=== PATIENT | female | born 1995 | race African-American/Black ===

== ENCOUNTER → 2024-02-26 | Outpatient (CLI) | payer BC, SELFPAY ==
[2024-03-04 10:09] LABS: Clam <0.10 kU/L (Class 0); Codfish <0.10 kU/L (Class 0); Corn <0.10 kU/L (Class 0); Egg, White <0.10 kU/L (Class 0); Milk (Cow) <0.10 kU/L (Class 0); Peanut <0.10 kU/L (Class 0); SCALLOP <0.10 kU/L (Class 0); SESAME SEED <0.10 kU/L (Class 0); Shrimp <0.10 kU/L (Class 0); Soybean <0.10 kU/L (Class 0); Walnut, (Food) <0.10 kU/L (Class 0); Wheat <0.10 kU/L (Class 0)
== END | disposition home or self-care (01) ==
PROVIDERS: Referring Provider Otolaryngology; Visit Provider Otolaryngology
DX: T78.40XA Allergy, unspecified, initial encounter (principal)
CPT/HCPCS: 36415; 86003

== ENCOUNTER 2024-11-15 20:18 | Emergency (ER) | payer OTHER, SELFPAY ==
[2024-11-15 20:19] VITALS: BP 123/77; PULSE 100; RESP 18; TEMP 36.9; O2SAT 98; BMI 59.7
--- NOTE | 2024-11-15 20:37 | EDS_ITS ---
HPI History of Present Illness Chief Complaint: Chest Pain Narrative Narrative: Patient presenting today due to left upper quadrant abdominal pain that radiates to her epigastrium that she has had off-and-on for over a month. She reports that it has been worse over the past few weeks, especially today, prompting her to come in for evaluation. She reports that she ate chicken tenders and [place] fries from [employer] today and that worsened her pain. She notices that her pain is worse after eating greasy and spicy foods. She does have a history of a cholecystectomy. She denies fevers, chills, chest pain, vomiting, and urinary symptoms. She reports that she has been somewhat constipated. PFSH PFSH Medical History no medical history Allergy/AdvReac Type Severity Reaction Status Date / Time Seasonal Allergies: Uncoded Allergy Mild SNEEZING Verified 11/15/24 20:23 Surgical History (Updated 11/15/24 @ 20:36 by Selma Ruggiero) H/O section History of cholecystectomy Social History Smoking Status: Never smoker ROS ROS ED Constitutional Constitutional ED: Denies chills or fever(s) Cardiovascular Cardiovascular: Denies chest pain Respiratory/Chest Respiratory/Chest: Denies dyspnea Gastrointestinal Gastrointestinal: Reports abdominal pain, constipation and nausea; Denies diarrhea, melena or vomiting Genitourinary Genitourinary ED: Denies dysuria, hematuria or urinary urgency Musculoskeletal Musculoskeletal: Denies arthralgias or myalgias Integumentary Denies rash Neurologic Neurologic: Denies weakness EXAM Physical Exam Const Vital Signs: 11/15/24 20:19 Temperature 98.4 F Temperature Source Temporal Pulse Rate 100 Respiratory Rate 18 Blood Pressure 123/77 H Blood Pressure Mean 92 Pulse Ox 98 Oxygen Delivery Method Room Air Positive well nourished, well developed and no apparent distress General Appearance ED: well developed HEENT Reports normocephalic and head/scalp atraumatic Mouth ED: Yes moist mucous membranes normal Eyes PERRL and EOMs intact bilaterally Neck full ROM and supple Chest Wall inspection of chest normal Resp normal respiratory effort and clear to auscultation bilaterally Cardio regular rate and regular rhythm GI soft to palpation, non-distended and no masses GI Narrative: Minimal epigastric and left upper quadrant tenderness to palpation, no rigidity or guarding. Back/Spine normal ROM and normal to inspection Extremity normal to inspection and full ROM Neuro oriented x3, CN's II-XII intact bilaterally, moves all extremities, no focal motor deficits and no sensory deficits noted Sensorium / Orientation: awake and alert Psych mental status grossly normal and thought process normal Skin no rashes or lesions noted and no wounds MDM MDM MDM Narrative Medical decision making narrative: Patient presenting today with left upper quadrant abdominal pain and epigastric pain she has had intermittently for over a month. It has been worse over the past few weeks, especially today after eating chicken fingers and Cuban fries from [employer]. She has no reports chest pain, patient denies chest pain, her symptoms are GI in nature. We will trial a GI cocktail and Pepcid. Lipase will be obtained to assess for pancreatitis given she did have a moderate amount of alcohol this weekend after drinking 3 tall boys. Discharge Plan Triage Chief Complaint: Chest Pain ED Midlevel Provider: Slime Eubanks ED Provider: Emiliano De La Cruz Dx/Rx/DC Orders Primary Care Provider: NOT,DEFINED Referrals: NOT,DEFINED [Primary Care Provider] - Print Language: Turkmen
--- NOTE | 2024-11-15 20:37 | EX.ED.DYSGE1 ---
HPI <RAIN King - Last Filed: 11/15/24 21:48> History of Present Illness Chief Complaint: Chest Pain Narrative Narrative: Patient presenting today due to left upper quadrant abdominal pain that radiates to her epigastrium that she has had off-and-on for over a month. She reports that it has been worse over the past few weeks, especially today, prompting her to come in for evaluation. She reports that she ate chicken tenders and [place] fries from [employer] today and that worsened her pain. She notices that her pain is worse after eating greasy and spicy foods. She does have a history of a cholecystectomy. She denies fevers, chills, chest pain, vomiting, and urinary symptoms. She reports that she has been somewhat constipated. PFSH <RAIN King - Last Filed: 11/15/24 21:48> [facility] Medical History no medical history Home Medications ?Medication ?Instructions ?Recorded ?Last Taken ?Type famotidine 20 mg tablet (Pepcid) 20 mg PO DAILY #14 tabs 11/15/24 Unknown Rx Allergy/AdvReac Type Severity Reaction Status Date / Time Seasonal Allergies: Uncoded Allergy Mild SNEEZING Verified 11/15/24 20:23 Surgical History (Updated 11/15/24 @ 20:36 by Selma Ruggiero) H/O section History of cholecystectomy Social History Smoking Status: Never smoker ROS <RAIN King - Last Filed: 11/15/24 21:48> ROS ED Constitutional Constitutional ED: Denies chills or fever(s) Cardiovascular Cardiovascular: Denies chest pain Respiratory/Chest Respiratory/Chest: Denies dyspnea Gastrointestinal Gastrointestinal: Reports abdominal pain, constipation and nausea; Denies diarrhea, melena or vomiting Genitourinary Genitourinary ED: Denies dysuria, hematuria or urinary urgency Musculoskeletal Musculoskeletal: Denies arthralgias or myalgias Integumentary Denies rash Neurologic Neurologic: Denies weakness EXAM <RAIN King - Last Filed: 11/15/24 21:48> Physical Exam Const Vital Signs: 11/15/24 20:19 11/15/24 21:56 Temperature 98.4 F 98.0 F Temperature Source Temporal Pulse Rate 100 97 Respiratory Rate 18 18 Blood Pressure 123/77 H 137/82 H Blood Pressure Mean 92 100 Pulse Ox 98 100 Oxygen Delivery Method Room Air Positive well nourished, well developed and no apparent distress General Appearance ED: well developed HEENT Reports normocephalic and head/scalp atraumatic Mouth ED: Yes moist mucous membranes normal Eyes PERRL and EOMs intact bilaterally Neck full ROM and supple Chest Wall inspection of chest normal Resp normal respiratory effort and clear to auscultation bilaterally Cardio regular rate and regular rhythm GI soft to palpation, non-distended and no masses GI Narrative: Minimal epigastric and left upper quadrant tenderness to palpation, no rigidity or guarding. Back/Spine normal ROM and normal to inspection Extremity normal to inspection and full ROM Neuro oriented x3, CN's II-XII intact bilaterally, moves all extremities, no focal motor deficits and no sensory deficits noted Sensorium / Orientation: awake and alert Psych mental status grossly normal and thought process normal Skin no rashes or lesions noted and no wounds <Dr. Emiliano De La Cruz MD - Last Filed: 11/15/24 22:21> Physical Exam Const Vital Signs: 11/15/24 20:19 11/15/24 21:56 Temperature 98.4 F 98.0 F Temperature Source Temporal Pulse Rate 100 97 Respiratory Rate 18 18 Blood Pressure 123/77 H 137/82 H Blood Pressure Mean 92 100 Pulse Ox 98 100 Oxygen Delivery Method Room Air MDM <RAIN King - Last Filed: 11/15/24 21:48> [facility] Narrative Medical decision making narrative: Patient presenting today with left upper quadrant abdominal pain and epigastric pain she has had intermittently for over a month. It has been worse over the past few weeks, especially today after eating chicken fingers and [place] fries from [employer]. She has no reports chest pain, patient denies chest pain, her symptoms are GI in nature. We will trial a GI cocktail and Pepcid. Do not feel abdominal imaging is indicated at this time. Lipase will be obtained to assess for pancreatitis given she did have a moderate amount of alcohol this weekend after drinking 3 tall boys. Lipase is unremarkable. She reports resolution of her pain after the medication. I will give her prescription for Pepcid, counseled her on dietary changes. Recommend following up with PCP and patient discharged home in stable condition. I have personally performed a face to face assessment of the patient and have reviewed the MARYJO Note. I performed a substantive portion of the visit including all aspects of the following. My perrin findings include: History is is remarkable for cholecystectomy. Patient has history pancreatitis. She states she had 316 ounce beers this past weekend. She does not normally drink. She denies diarrhea. She denies respiratory symptoms. Nuys cardiac symptoms. She states movement makes her pain worse. There is no history of trauma. Exam is remarkable for a BMI of 59.7. Patient does not appear as much distress that she is reporting. HEENT is grossly unremarkable. Lungs are auscultation with symmetric breath sounds. Heart is regular. Rate is normal. Abdomen is remarkable tenderness in left upper quadrant. There is no hepatosplenomegaly. Abdominal exam is limited due to body habitus. Remainder exams unremarkable Medical Decision Making since back this is probably pain of unknown etiology. Because she had 316 ounce beers and has left upper quadrant pain will obtain lipase. This may also represent upset stomach due to the fact that she had chicken fingers and [place] fries in [employer]. Other additions or changes: [None] Lab Data Labs: Laboratory Results - last 24 hr 11/15/24 20:53 Lipase 13 <Dr. Emiliano De La Cruz MD - Last Filed: 11/15/24 22:21> [facility] Narrative Medical decision making narrative: Patient presenting today with left upper quadrant abdominal pain and epigastric pain she has had intermittently for over a month. It has been worse over the past few weeks, especially today after eating chicken fingers and [place] fries from [employer]. She has no reports chest pain, patient denies chest pain, her symptoms are GI in nature. We will trial a GI cocktail and Pepcid. Lipase will be obtained to assess for pancreatitis given she did have a moderate amount of alcohol this weekend after drinking 3 tall boys. I have personally performed a face to face assessment of the patient and have reviewed the MARYJO Note. I performed a substantive portion of the visit including all aspects of the following. My perrin findings include: History is is remarkable for cholecystectomy. Patient has history pancreatitis. She states she had 316 ounce beers this past weekend. She does not normally drink. She denies diarrhea. She denies respiratory symptoms. Nuys cardiac symptoms. She states movement makes her pain worse. There is no history of trauma. Exam is remarkable for a BMI of 59.7. Patient does not appear as much distress that she is reporting. HEENT is grossly unremarkable. Lungs are auscultation with symmetric breath sounds. Heart is regular. Rate is normal. Abdomen is remarkable tenderness in left upper quadrant. There is no hepatosplenomegaly. Abdominal exam is limited due to body habitus. Remainder exams unremarkable Medical Decision Making since back this is probably pain of unknown etiology. Because she had 316 ounce beers and has left upper quadrant pain will obtain lipase. This may also represent upset stomach due to the fact that she had chicken fingers and [place] fries in [facility]. Other additions or changes: [None] Lab Data Labs: Laboratory Results - last 24 hr 11/15/24 20:53 Lipase 13 Discharge Plan Triage Chief Complaint: Chest Pain ED Midlevel Provider: Slime Eubanks ED Provider: Emiliano De La Cruz Dx/Rx/DC Orders Clinical Impression: Abdominal pain Instructions: ED GERD (Adult) Prescriptions: New famotidine [Pepcid] 20 mg tablet 20 mg PO DAILY Qty: 14 0RF Primary Care Provider: Darron Olivares Referrals: NOT,DEFINED [Non-Staff] - Activity Restrictions/Additional Instructions: Avoid spicy, greasy, fatty foods. Follow-up with your PCP and return for any worsening symptoms. Print Language: Romanian Disposition Disposition: Home, Self Care Discharge Date/Time: 11/15/24 22:07
[2024-11-15] MEDS: Lidocaine 2% Viscous15 ML UDC 15 ML PO (20:51)
[2024-11-15] MEDS: Mag Hydrox/Al Hydrox/Simeth 30 ML UDC PO (20:51)
[2024-11-15] MEDS: Famotidine 20 MG Tablet PO (20:52)
--- NOTE | 2024-11-15 20:54 | EKG12_ITS ---
Test Reason : CP Blood Pressure : */* mmHG Vent. Rate : 101 BPM Atrial Rate : 101 BPM P-R Int : 148 ms QRS Dur : 78 ms QT Int : 338 ms P-R-T Axes : 32 25 29 degrees QTcB Int : 438 ms Sinus tachycardia Otherwise normal ECG Confirmed by MERARI LOREDO, HERNESTO ([id number]), graphic editor TL LOPEZ ([id number]) on 11/17/2024 1:22:17 PM Referred By: Confirmed By: HERNESTO GAGE MD
[2024-11-15 21:32] LABS: Lipase 13 U/L (13-75)
[2024-11-15 21:56] VITALS: BP 137/82; PULSE 97; RESP 18; TEMP 36.7; O2SAT 100
== END 2024-11-15 22:07 | disposition home or self-care (01) ==
PROVIDERS: Physician Assistant; Emergency Provider Emergency Medicine; PCP Nurse Practitioner; Visit Provider Emergency Medicine
DX: R10.12 Left upper quadrant pain (principal); Z90.49 Acquired absence of other specified parts of digestive tract
CPT/HCPCS: 83690; 93005; 99282; A4216